=== PATIENT | female | born 1960 | race Caucasian/White ===

== ENCOUNTER → 2020-05-31 | Outpatient (CLI) | payer BC ==
--- NOTE | 2020-05-31 08:44 | CT ---
EXAM: CT Head Without Intravenous Contrast CLINICAL HISTORY: CT Reason: R42 Dizziness and giddiness G45 Transient cerebral TECHNIQUE: Axial computed tomography images of the head/brain without intravenous contrast. CTDI is 259.10 mGy and DLP is 1054.2 mGy-cm. This CT exam was performed using one or more of the following dose reduction techniques: automated exposure control, adjustment of the mA and/or kV according to patient size, and/or use of iterative reconstruction technique. COMPARISON: No relevant prior studies available. FINDINGS: Brain: Unremarkable. No hemorrhage. No significant white matter disease. No edema. Ventricles: Unremarkable. No ventriculomegaly. Bones/joints: Unremarkable. No acute fracture. Soft tissues: Unremarkable. Sinuses: Unremarkable as visualized. No acute sinusitis. Mastoid air cells: Unremarkable as visualized. No mastoid effusion. IMPRESSION: No CT evidence of acute intracranial pathology. EXAM: CT Angiography Head With Intravenous Contrast CLINICAL HISTORY: R42 Dizziness and giddiness G45 Transient cerebral TECHNIQUE: Axial computed tomographic angiography images of the head with intravenous contrast. CTDI is 259.10 mGy and DLP is 1054.2 mGy-cm. This CT exam was performed using one or more of the following dose reduction techniques: automated exposure control, adjustment of the mA and/or kV according to patient size, and/or use of iterative reconstruction technique. 3D and MIP reconstructed images were created and reviewed. COMPARISON: No relevant prior studies available. FINDINGS: Right internal carotid artery: No acute findings. Intracranial segment is patent with no significant stenosis. No aneurysm. Right anterior cerebral artery: Unremarkable. No occlusion or significant stenosis. No aneurysm. Right middle cerebral artery: Unremarkable. No occlusion or significant stenosis. No aneurysm. Right posterior cerebral artery: Unremarkable. No occlusion or significant stenosis. No aneurysm. Right vertebral artery: Unremarkable as visualized. Left internal carotid artery: No acute findings. Intracranial segment is patent with no significant stenosis. No aneurysm. Left anterior cerebral artery: Unremarkable. No occlusion or significant stenosis. No aneurysm. Left middle cerebral artery: Unremarkable. No occlusion or significant stenosis. No aneurysm. Left posterior cerebral artery: Unremarkable. No occlusion or significant stenosis. No aneurysm. Left vertebral artery: Unremarkable as visualized. Basilar artery: Unremarkable. No occlusion or significant stenosis. No aneurysm. IMPRESSION: Normal head CTA. EXAM: CT Angiography Neck With Intravenous Contrast CLINICAL HISTORY: Dizziness and giddiness G45 Transient cerebral TECHNIQUE: Axial computed tomographic angiography images of the neck with intravenous contrast. CTDI is 259.10 mGy and DLP is 1054.2 mGy-cm. This CT exam was performed using one or more of the following dose reduction techniques: automated exposure control, adjustment of the mA and/or kV according to patient size, and/or use of iterative reconstruction technique. 3D and MIP reconstructed images were created and reviewed. COMPARISON: No relevant prior studies available. FINDINGS: VASCULATURE: Right common carotid artery: Unremarkable. No significant stenosis. No dissection or occlusion. Right internal carotid artery: Mild vascular calcifications involving the right carotid bulb. Extracranial segment is patent with no significant stenosis. No dissection or occlusion. Right external carotid artery: Unremarkable. No occlusion. Right vertebral artery: Unremarkable. No significant stenosis. No dissection or occlusion. Left common carotid artery: Unremarkable. No significant stenosis. No dissection or occlusion. Left internal carotid artery: Mild vascular calcifications involving the left carotid bulb. Extracranial segment is patent with no significant stenosis. No dissection or occlusion. Left external carotid artery: Unremarkable. No occlusion. Left vertebral artery: Unremarkable. No significant stenosis. No dissection or occlusion. NECK: Bones/joints: Moderate narrowing of the C5-C6 intervertebral disc space with associated bony productive changes resulting in mild narrowing of the central canal with moderate narrowing of both neuroforamina. No acute fracture. No dislocation. Soft tissues: Unremarkable as visualized. No mass. CAROTID STENOSIS REFERENCE USING NASCET CRITERIA: % ICA stenosis = (1 - narrowest ICA diameter/diameter of distal cervical ICA) x 100. Mild - <50% stenosis. Moderate - 50-69% stenosis. Severe - 70-94% stenosis. Near occlusion - 95-99% stenosis. Occluded - 100% stenosis. IMPRESSION: No evidence of a hemodynamically significant stenosis.
--- NOTE | 2020-05-31 09:24 | US ---
EXAMINATION TYPE: US carotid duplex BILAT DATE OF EXAM: 05/31/2020 COMPARISON: NONE CLINICAL HISTORY: R42 DIZZINESS,I66.23 OBSTRUCTION OF CAROTID ARTERY ON BOTH S. Dizziness and headach es per patient. EXAM MEASUREMENTS: RIGHT: Peak Systolic Velocity (PSV) cm/sec ----- Right CCA: 64.3 ----- Right ICA: 90.9 ----- Right ECA: 51.3 ICA/CCA ratio: 1.4 RIGHT: End Diastole cm/sec ----- Right CCA: 25.3 ----- Right ICA: 33.8 ----- Right ECA: 11.0 LEFT: Peak Systolic Velocity (PSV) cm/sec ----- Left CCA: 77.3 ----- Left ICA: 169.0 ----- Left ECA: 47.9 ICA/CCA ratio: 2.2 LEFT: End Diastole cm/sec ----- Left CCA: 27.3 ----- Left ICA: 59.8 ----- Left ECA: 12.7 VERTEBRALS (direction of flow): Right Vertebral: Antegrade Left Vertebral: Antegrade Rhythm: Normal Wall thickening. Grayscale, color Doppler, spectral Doppler imaging performed of the carotid arteries . Waveform analysis suggests mild stenosis of the internal carotid artery in the left by Doppler crit eria. Plaque seen left bulb. Elevated right distal ICA velocity. Right neck prominent lymph node visualized = 1.6 x 0.5 x 0.6 cm IMPRESSION: Borderline hemodynamic significant stenosis of the proximal internal carotid artery in t he left by Doppler criteria, an indirect measurement of carotid stenosis corresponding to 50-69% diam eter reduction. Findings suggest greater degree of stenosis than seen on CTA Criteria for Assigning % of Stenosis / Diameter reduction (Estimation based on the indirect measurements of the internal carotid artery velocities (ICA PSV). 1. Normal (no stenosis)=ICA PSV < 125 cm/s: ratio < 2.0: ICA EDV<40 cm/s. 2. Less than 50% stenosis=ICA PSV < 125 cm/s: ratio < 2.0: ICA EDV<40 cm/s. 3. 50 to 69% stenosis=ICA PSV of 125 to 230 cm/s: ration 2.0 ? 4.0: ICA EDV 40-100 cm/s. 4. Greater than 70% stenosis to near occlusion= ICA PSV > 230 cm/s: ratio > 4.0: ICA EDV > 100 cm/s. 5. Near occlusion= ICA PSV velocities may be low or undetectable: variable ratio and ICA EDV. 6. Total occlusion=unable to detect flow.
== END | disposition home or self-care (01) ==
LOC: RADCTMAIN 06:45
PROVIDERS: ATTEND Otolaryngology Otolaryngic Allergy
DX: I65.22 Occlusion and stenosis of left carotid artery (principal); H91.93 Unspecified hearing loss, bilateral; R42 Dizziness and giddiness
CPT/HCPCS: 93880; 70496; 70498; Q9967